=== PATIENT | female | born 1965 | race Caucasian/White ===

== ENCOUNTER 2022-01-04 06:34 | Emergency (ER) | payer OTHER ==
[2022-01-04 07:20] LABS: BASOPHIL 0.5 % (0-2); EOSINOPHIL 1.8 % (0-5); HCT 36.1 % (37.0-47.0); HGB 11.8 g/dl (12.5-16.0); LYMPHOCYTE 56.1 % (15-48); MCHC 32.7 g/dL (32.0-36.0); MCV 94.8 fL (78.0-100.0); MONOCYTE 7.9 % (0-12); MPV 9.3 fL (6.0-9.5); NEUTROPHIL 33.5 % (41-80); NRBC 0; PLT 313 K/uL (150-400); RBC 3.81 M/uL (4.20-5.40); RDW 13.2 % (11.5-14.0); WBC 5.7 K/uL (4.0-10.5)
[2022-01-04 07:32] LABS: INR 1.06 (0.9-1.2); PROTHROMBIN TIME 13.2 SECONDS (11.8-13.4)
[2022-01-04 07:49] LABS: ALBUMIN 3.1 g/dL (3.4-5.0); BILIRUBIN - TOTAL 0.2 mg/dL (0.2-1.0); BUN/CREAT RATIO (CALC) 16.7 RATIO; CREATININE 0.84 mg/dL (0.51-0.95); GLOBULIN (CALCULATION) 2.6 g/dL; POTASSIUM 4.1 mmol/L (3.5-5.1); TOTAL PROTEIN 5.7 g/dL (6.4-8.2)
[2022-01-04 10:04] LABS: BILIRUBIN NEGATIVE (NEGATIVE); BLOOD TRACE-INTACT Ery/uL (NEGATIVE); CLARITY CLEAR (CLEAR); COLOR YELLOW (YELLOW); GLUCOSE (U) NORMAL (NORMAL); LEUKOCYTES NEGATIVE Leu/uL (NEGATIVE); NITRITE POSITIVE (NEGATIVE); PROTEIN NEGATIVE (NEGATIVE); UROBILINOGEN 0.2 mg/dL (0.2-1.0); pH 6.5 (5.0-9.0)
[2022-01-04 10:14] LABS: BACTERIA 4+
[2022-01-04 10:17] LABS: BARBITURATES NEGATIVE (NEGATIVE); ECSTASY (MDMA) NEGATIVE (NEGATIVE); MARIJUANA (THC) NEGATIVE (NEGATIVE); METHADONE POSITIVE (NEGATIVE); OPIATES NEGATIVE (NEGATIVE)
[2022-01-04 10:18] LABS: AMPHETAMINES POSITIVE (NEGATIVE); OXYCODONE NEGATIVE (NEGATIVE)
== END 2022-01-04 17:07 | disposition other institution (70) ==
LOC: FER 06:34
PROVIDERS: Emergency Medicine
DX: I63.81 Other cerebral infarction due to occlusion or stenosis of small artery (principal); G81.94 Hemiplegia, unspecified affecting left nondominant side; R20.2 Paresthesia of skin; R29.702 NIHSS score 2; F17.200 Nicotine dependence, unspecified, uncomplicated; Z20.822 Contact with and (suspected) exposure to COVID-19
CPT/HCPCS: 36415; 70551; 71045; 80053; 80305; 81001; 84484; 85025; 85610; 87076; 87088; 87186; 93005; J7030; U0002